=== PATIENT | female | born 1975 | race Two or more races ===

== ENCOUNTER 2022-11-10 05:13 | Emergency (ER) | payer OTHER ==
[~2022-11-10] VITALS: Ht 152.4 cm; Wt 58.1 kg
[2022-11-10] MEDS ORDERED: SERTRALINE HCL50 MG PO (05:24)
[2022-11-10] MEDS ORDERED: ALBUTEROL0.63 MG/3 IH (05:24)
[2022-11-10] MEDS ORDERED: MUCINEX600 MG PO (05:24)
[2022-11-10] MEDS ORDERED: ZYRTEC10 M3 PO (05:25)
== END 2022-11-10 08:52 | disposition home or self-care (01) ==
LOC: ER 05:13
DX: J45.991 Cough variant asthma (principal)

== ENCOUNTER 2024-05-01 08:32 | Outpatient (CLI) | payer OTHER ==
[~2024-05-01 08:32] MED LIST: ALBUTEROL0.63 MG/3 IH; MUCINEX600 MG PO; SERTRALINE HCL50 MG PO; ZYRTEC10 M3 PO
== END 2024-05-01 08:56 | disposition home or self-care (01) ==
LOC: RAD 08:32
PROVIDERS: ATTEND Otolaryngology Otolaryngology/Facial Plastic Surgery
DX: Z01.89 Encounter for other specified special examinations (principal)

== ENCOUNTER 2024-11-09 10:11 | Outpatient (CLI) | payer OTHER | END 2024-11-09 10:23 | disposition home or self-care (01) | LOC: RAD 10:11 | PROVIDERS: ATTEND Family Medicine | DX: M75.42 Impingement syndrome of left shoulder (principal); M79.644 Pain in right finger(s) ==